=== PATIENT | male | born 1995 | race Caucasian/White ===

== ENCOUNTER → 2017-03-28 | Outpatient (CLI) | payer BC | LOC: BHSO 09:05 | DX: F41.1 Generalized anxiety disorder (principal) | CPT/HCPCS: 90791-AI ==

== ENCOUNTER → 2017-06-04 | Outpatient (CLI) | payer BC | LOC: BHSO 09:59 | DX: F41.1 Generalized anxiety disorder (principal) | CPT/HCPCS: G0463 ==